=== PATIENT | male | born 1975 | race Caucasian/White ===

== ENCOUNTER 2018-08-13 02:02 | Emergency (ER) | payer MEDICAID ==
[~2018-08-13] VITALS: Ht 190.5 cm; Wt 117.9 kg
[2018-08-13 02:10] VITALS: BP 131/73
--- NOTE | 2018-08-13 02:10 | NUR ---
PT PRESENTS TO ED WITH RIGHT KNEE PAIN 10/10 X3 HRS. REDNESS, EDEMA, AND WARMTH PRESENT. SKIN INTACT. PT DENIES TRAUMA. VSS. POSITIONED IN BED FOR COMFORT. ER MD AWARE. CONTINUE TO MONITOR.
--- NOTE | 2018-08-13 02:10 | NUR ---
PT AMBULATED TO BED 9 WITH VSS. ACCOMPANIED BY .
[2018-08-13] MEDS ORDERED: CLINDAMYCIN 600 MG/4 ML VIAL IM ONE (03:15)
--- NOTE | 2018-08-13 03:18 | NUR ---
PT REFUSED CLINDAMYCIN IM. DR BANERJEE NOTIFIED. VSS.
[2018-08-13 03:20] VITALS: BP 130/77
--- NOTE | 2018-08-13 03:20 | NUR ---
Patient discharged with v/s stable. Written and verbal after care instructions given and explained. Patient alert, oriented and verbalized understanding of instructions. Ambulatory with steady gait. All questions addressed prior to discharge. ID band removed. Patient advised to follow up with PMD. Rx of Acetaminophen and Bactrim given. Patient educated on indication of medication including possible reaction and side effects. Opportunity to ask questions provided and answered.
== END 2018-08-13 03:20 | disposition home or self-care (01) ==
LOC: MED 02:02
DX: L03.115 Cellulitis of right lower limb (principal); Z88.6 Allergy status to analgesic agent
CPT/HCPCS: 99283; J3490

== ENCOUNTER 2018-12-05 13:13 | Emergency (ER) | payer SELFPAY ==
[~2018-12-05] VITALS: Ht 193 cm; Wt 113.4 kg
--- NOTE | 2018-12-05 13:15 | NUR ---
PT BIBA BLS TO BED 4
--- NOTE | 2018-12-05 13:20 | NUR ---
PT IS A 42 Y/O MALE BIB BLS WHO PRESENTS TO THE ED C/O N/V/D. PT STATES THAT IT STARTED AFTER EATING PORK YESTERDAY. PT REPORTS CRAMPING 10/10 LLQ ABD PAIN THAT DOES NOT RADIATE. PT DENIES CP, SOB, REPORTS NAUSEA/VOMITING X4 EPISODES /DIARRHEA X7 EPISODES. BS PRESENTS IN ALL QUADRANTS. PT DENIES CP, SOB, RR EVEN/UNLABORED, LUNG SOUNDS CLEAR BL. PT REPOSITIONED FOR COMFORT, ER MD DR. HESS NOTIFIED. WILL CONTINUE TO MONITOR. HX ANXIETY,HTN DENIES RX
[2018-12-05 13:22] VITALS: BP 145/82
[2018-12-05] MEDS ORDERED: ONDANSETRON 4 MG ODT PO ONE (13:45)
--- NOTE | 2018-12-05 13:45 | NUR ---
PATIENT REPORT GIVEN TO SOUMYA CHRISTENSEN.
[2018-12-05] MEDS ORDERED: MORPHINE SULFATE 4 MG/ML SYR IM ONE (14:35)
[2018-12-05 15:30] VITALS: BP 128/72
--- NOTE | 2018-12-05 15:30 | NUR ---
Patient discharged with v/s stable. Written and verbal after care instructions given and explained. Patient alert, oriented and verbalized understanding of instructions. Wheel Chair Assisted with to home. All questions addressed prior to discharge. ID band removed. Patient advised to follow up with PMD. Rx of CIPRO,ZOFRAN,NORCO given. Patient educated on indication of medication including possible reaction and side effects. Opportunity to ask questions provided and answered.
== END 2018-12-05 15:30 | disposition home or self-care (01) ==
LOC: MED 13:13
DX: R11.2 Nausea with vomiting, unspecified (principal); R19.7 Diarrhea, unspecified; R10.32 Left lower quadrant pain; R50.9 Fever, unspecified; Z88.6 Allergy status to analgesic agent
CPT/HCPCS: 96372; 99283; J2270; Q0162

== ENCOUNTER 2019-10-22 19:16 | Emergency (ER) | payer MEDICAID ==
[~2019-10-22] VITALS: Ht 190.5 cm; Wt 117.9 kg
[2019-10-22 19:38] VITALS: BP 144/82
--- NOTE | 2019-10-22 19:48 | NUR ---
TAKEN TO BED 08 VIA WC. REPORT GIVEN TO AMPARO JIMENEZ.
--- NOTE | 2019-10-22 20:06 | NUR ---
C/O ABSCESS TO RIGHT WRIST X 1 DAY. SITE RED AND SWOLLEN IN APPEARANCE WITH PURULENT SANGUINEOUS DRAINAGE NOTED. DENIES FEVER, CHILLS, N/V/D. PT REPORTS SOB AND FEELINGS OF ANXIETY. PT ON 98% RA. STATES HE REQUIRES WC ASSISTANCE DUE TO PREVIOUS HIP INJURY THAT OCCURED OCT 16, 2019. PT STATES HE HAD AN MRI DONE AND RESULTS WERE CONTUSION. PT THEN ADDS THAT HE WAS SEEN IN URGENT CARE YESTERDAY FOR HEAD KIRSTEN FOR ANOTHER INJURY. SENT HOME WITH ANTIBIOTIC PRESCRIPTION THAT HE FILLED BUT HASNT STARTED TAKING. VS STABLE. PT ALERT AND AWAKE. PMH-- DENIES RX-- NORCO AND NAPROXEN FOR HIP PAIN
--- NOTE | 2019-10-22 20:10 | NUR ---
PAIN 9/10 TO PTS L HIP, KIRSTEN IN HEAD, AND ABSCESS SITE
--- NOTE | 2019-10-22 20:18 | NUR ---
NANCY ZAMORA AT BEDSIDE
[2019-10-22] MEDS ORDERED: ACETAMINOPHEN 325 MG TAB PO ONE (20:25)
[2019-10-22] MEDS ORDERED: cefTRIAXone 1,000 MG in LIDOCAINE MPF 1% 2.1 ML IM ONE (20:25)
[2019-10-22] MEDS ORDERED: cefTRIAXone 1,000 MG VIAL ONE (20:25)
[2019-10-22] MEDS ORDERED: LIDOCAINE MPF 1% 5 ML ONE (20:26)
--- NOTE | 2019-10-22 20:33 | NUR ---
TYLENOL AND ROCEPHIN ADMINISTERED
--- NOTE | 2019-10-22 20:40 | NUR ---
PTS WOUND WAS COVERED W/ A NON ADHERENT GAUZE 4X4 GAUZE PLACED ON TOP TO GET OVER FLOW, WOUND WAS THEN WRAPED IN A ROLL GAUZE. [facility].
--- NOTE | 2019-10-22 20:45 | NUR ---
NADR, PAIN 04/14
[2019-10-22 20:46] VITALS: BP 140/79
--- NOTE | 2019-10-22 20:46 | NUR ---
Patient discharged with v/s stable. Written and verbal after care instructions given and explained. Patient alert, oriented and verbalized understanding of instructions. Ambulatory with steady gait. All questions addressed prior to discharge. ID band removed. Patient advised to follow up with PMD. Rx of BACTRIM given. Patient educated on indication of medication including possible reaction and side effects. Opportunity to ask questions provided and answered. PT INSTRUCTED TO TAKE OTC MEDS PRN PAIN
== END 2019-10-22 20:46 | disposition home or self-care (01) ==
LOC: MED 19:16
DX: L02.413 Cutaneous abscess of right upper limb (principal); Z88.8 Allergy status to other drugs, medicaments and biological substances
CPT/HCPCS: 96372; 99283; J0696; J2001; 99281

== ENCOUNTER 2019-11-01 21:13 | Emergency (ER) | payer MEDICAID ==
[~2019-11-01] VITALS: Ht 190.5 cm; Wt 117.9 kg
--- NOTE | 2019-11-01 21:20 | NUR ---
Note [email or web address] in EDM - 11/01/19 at 6909 by ENRICO 43 YEAR OLD MALE COMPLAINS OF LEFT SIDED HIP PAIN X END OF SEPTEMBER. PATIENT STATES HE WAS TRYING TO LIFT THE GARAGE DOOR AND THEN HE FELT A SUDDEN PAIN SINCE EVENT. PATIENT STATES PAIN WORSENS WHEN TRYING TO WALK. PATIENT AOX4, BREATHING EVEN AND UNLABORED, SKIN WARM AND DRY. BED IN LOWEST POSITION, LOCKED, BED RAIL UPX1. AT BEDSIDE PMH - DENIES ALLERGIES - IBUPROFEN, PEROXIDE
[2019-11-01 21:30] VITALS: BP 142/87
--- NOTE | 2019-11-01 21:33 | NUR ---
TO LOBBY A/W BED VIA W/C
--- NOTE | 2019-11-01 21:44 | NUR ---
Pt wheel chair assisted to bed 2.
[2019-11-01] MEDS ORDERED: CYCLOBENZAPRINE 10 MG TAB PO ONE (22:05)
[2019-11-01] MEDS ORDERED: MORPHINE SULFATE 4 MG/ML SYR IM ONE (22:05)
--- NOTE | 2019-11-01 22:20 | NUR ---
ASSESSMENT DONE AT 0. 43 YEAR OLD MALE COMPLAINS OF LEFT SIDED HIP PAIN X END OF SEPTEMBER. PATIENT STATES HE WAS TRYING TO LIFT THE GARAGE DOOR AND THEN HE FELT A SUDDEN PAIN SINCE EVENT. PATIENT STATES PAIN WORSENS WHEN TRYING TO WALK. PATIENT AOX4, BREATHING EVEN AND UNLABORED, SKIN WARM AND DRY. BED IN LOWEST POSITION, LOCKED, BED RAIL UPX1. AT BEDSIDE PMH - DENIES ALLERGIES - IBUPROFEN, PEROXIDE
[2019-11-02] MEDS ORDERED: NACL 0.9% 1,000 ML IV ONE (00:25)
--- NOTE | 2019-11-02 00:30 | NUR ---
PATIENT ALERT AND AWAKE, STATES HE IS UNABLE TO URINATE. DR ZAFAR MADE AWARE.
[2019-11-02] MEDS ORDERED: MORPHINE SULFATE 4 MG/ML SYR IVP ONE (00:40)
--- NOTE | 2019-11-02 01:00 | NUR ---
PATIENT STILL UNABLE TO URINATE.
--- NOTE | 2019-11-02 01:20 | NUR ---
DR ZAFAR OK WITH NO URINATION BEFORE DISCHARGE
[2019-11-02 01:30] VITALS: BP 133/65
--- NOTE | 2019-11-02 01:30 | NUR ---
Patient discharged with v/s stable. Written and verbal after care instructions ABOUT BACK PAIN, HERNIATED DISC, AND SCIATICA given and explained. Patient alert, oriented and verbalized understanding of instructions. Wheel Chair Assisted with to car. All questions addressed prior to discharge. ID band removed. Patient advised to follow up with PMD. Rx of FLEXERIL AND TRAMADOL given. Patient educated on indication of medication including possible reaction and side effects. Opportunity to ask questions provided and answered. PT STATES UNDERSTANDING OF MORPHINE AND TO NOT DRIVE, STATES WILL DRIVE. PT GIVEN RESULTS OF CT SCANS.
== END 2019-11-02 01:30 | disposition home or self-care (01) ==
LOC: MED 21:13
DX: M54.42 Lumbago with sciatica, left side (principal); M51.9 Unspecified thoracic, thoracolumbar and lumbosacral intervertebral disc disorder
CPT/HCPCS: 72131; 72192; 96372; 96374; 99284; J2270; J7030

== ENCOUNTER 2020-08-06 14:01 | Emergency (ER) | payer MEDICAID ==
[~2020-08-06] VITALS: Ht 190.5 cm; Wt 122.5 kg
[2020-08-06 14:12] VITALS: BP 96/54
--- NOTE | 2020-08-06 14:17 | NUR ---
Rissa garza in [facility] - 08/06/20 at 1418 by MARGARITA PATIENT AMBULATED WITH STEADY GAIT TO BED 6.
--- NOTE | 2020-08-06 14:17 | NUR ---
PT A,BULATED TO BED 6
--- NOTE | 2020-08-06 14:20 | NUR ---
PT C/O THROBBING PAIN ON THE RIGHT GREAT, SECOND, AND THIRD TOES S/P FELL OFF OF THE 6-FEET LADDER ONE MONTH AGO. PT DID NOT SEE DR FOR THE PAIN BUT HE TOOK NAPROXEN NEEDED. SLIGHT EDEMA AND EYRTHEMA ON THE RIGHT GREAT TOE. NO DEFORMITY AND SKIN IS INTACT. DENIES HEAD TRAUMA OR LOC.
--- NOTE | 2020-08-06 15:20 | NUR ---
XRAY IS AT BEDSIDE.
[2020-08-06 15:53] VITALS: BP 107/55
--- NOTE | 2020-08-06 15:53 | NUR ---
Patient discharged with v/s stable. Written and verbal after care instructions given and explained. Patient alert, oriented and verbalized understanding of instructions. Ambulatory with steady gait. All questions addressed prior to discharge. ID band removed. Patient advised to follow up with PMD. Rx of Cornell given. Patient educated on indication of medication including possible reaction and side effects. Opportunity to ask questions provided and answered.
== END 2020-08-06 15:53 | disposition home or self-care (01) ==
LOC: MED 14:01
DX: M79.671 Pain in right foot (principal); Z88.6 Allergy status to analgesic agent
CPT/HCPCS: 73630; 99283; Q0092

== ENCOUNTER 2022-02-12 08:55 | Emergency (ER) | payer MEDICAID ==
[~2022-02-12] VITALS: Ht 193 cm; Wt 161.5 kg
[2022-02-12 08:57] VITALS: BP 129/97
--- NOTE | 2022-02-12 09:00 | NUR ---
PATIENT AMBULATED TO BED 6.
--- NOTE | 2022-02-12 10:02 | NUR ---
PT LEFT WITHOUT BEING SEEN.
--- NOTE | 2022-02-12 10:02 | NUR ---
PATIENT LEFT WITHOUT BEING SEEN BY DR. BURGER. NO FURTHER CARE PROVIDED FOR PATIENT.
== END 2022-02-12 10:02 | disposition left against medical advice (07) ==
LOC: MED 08:55
DX: M79.651 Pain in right thigh (principal); Z53.21 Procedure and treatment not carried out due to patient leaving prior to being seen by health care provider